=== PATIENT | male | born 1980 | race Caucasian/White ===

== ENCOUNTER 2021-01-09 12:03 | Emergency (ER) | payer OTHER ==
[~2021-01-09] VITALS: Ht 182.9 cm; Wt 99.8 kg
[2021-01-09] MEDS ORDERED: MIRTAZAPINE15 M2 PO (12:28)
[2021-01-09] MEDS ORDERED: ADDERALL 20 MG20 M1 PO (12:28)
[2021-01-09] MEDS ORDERED: SERTRALINE HCL100 MG PO (12:28)
[2021-01-09 13:38] LABS: ABSOLUTE NEUTROPHILS 5.1 thou/uL (1.4-8.2); BASOPHILS 0.3 % (0.0-2.0); EOSINOPHILS 2.2 % (0.0-3.0); HEMATOCRIT 45.8 % (42.0-52.0); HEMOGLOBIN 15.6 gm/dL (14.0-18.0); LYMPHOCYTES 24.5 % (24.0-44.0); MCH 29.6 pg (26.0-34.0); MONOCYTES 6.7 % (1.0-8.0); PLATELET COUNT 310 thou/uL (150-400); POLYS 66.3 % (36.0-66.0); RBC 5.26 mil/uL (4.50-6.00); RDW 13.4 % (10.5-14.5); WBC 7.6 thou/uL (4.0-11.0)
[2021-01-09 13:47] LABS: CALCIUM 9.2 mg/dL (8.5-10.1); CREATININE 1.4 mg/dL (0.7-1.3); POTASSIUM 4.2 mmol/L (3.5-5.1)
[2021-01-09 13:53] LABS: ALBUMIN 4.2 g/dL (3.4-5.0); MAGNESIUM 2.2 mg/dL (1.8-2.4); TOTAL BILIRUBIN 0.5 mg/dL (0.2-1.0); TOTAL PROTEIN 7.2 g/dL (6.4-8.2)
[2021-01-09 16:14] VITALS: BP 135/84
== END 2021-01-09 16:14 | disposition home or self-care (01) ==
LOC: ER 12:03
PROVIDERS: Emergency Medicine
DX: H57.04 Mydriasis (principal)